=== PATIENT | male | born 1990 | race Caucasian/White ===

== ENCOUNTER 2021-03-20 13:39 | Emergency (ER) | payer OTHER | END 2021-03-20 15:01 | disposition left against medical advice (07) | LOC: ER1 13:39 | DX: Z53.21 Procedure and treatment not carried out due to patient leaving prior to being seen by health care provider (principal) ==

== ENCOUNTER 2021-08-24 07:47 | Emergency (ER) | payer OTHER | END 2021-08-24 10:15 | disposition left against medical advice (07) | LOC: ER1 07:47 | DX: B34.9 Viral infection, unspecified (principal); Z20.822 Contact with and (suspected) exposure to COVID-19 | CPT/HCPCS: 99283; U0002 ==

== ENCOUNTER 2022-02-03 19:35 | Emergency (ER) | payer OTHER ==
[2022-02-03 20:14] LABS: HEMOGLOBIN 14.1 gm/dl (14.0-17.5); RED BLOOD COUNT 4.64 M/UL (4.20-5.50); WHITE BLOOD COUNT 9.9 K/UL (4.5-11.0)
[2022-02-03 20:54] LABS: BUN/CREATININE RATIO 16 (0-10)
[2022-02-03] MEDS ORDERED: KEPPRA500 MG PO (22:44)
== END 2022-02-04 00:01 | disposition home or self-care (01) ==
LOC: ER1 19:35
PROVIDERS: Family Medicine
DX: G40.909 Epilepsy, unspecified, not intractable, without status epilepticus (principal); F15.10 Other stimulant abuse, uncomplicated; F14.10 Cocaine abuse, uncomplicated; F11.10 Opioid abuse, uncomplicated
CPT/HCPCS: 80053; 80307; 85025; 96374; 99285; G0480; J1953; J2310